=== PATIENT | male | born 1995 | race Caucasian/White ===

== ENCOUNTER 2018-09-19 22:12 | Emergency (ER) | payer BC, OTHER ==
[~2018-09-19] VITALS: Ht 167.6 cm; Wt 63.6 kg
[2018-09-19 22:19] VITALS: Ht 167.6 cm; Wt 63.6 kg
[2018-09-19] MEDS ORDERED: NALO4SPR NS (22:48)
[2018-09-19] MEDS ORDERED: NAR2I NS (22:48)
[2018-09-19 22:52] VITALS: BP 130/82; PULSE 88; RESP 15
--- NOTE | 2018-09-20 06:42 | ERD ---
ER Documentation Chief Complaint Chief Complaint bib ra89 for heroin overdose. given narcan intranasal by family at home HPI 23-year-old man brought in by EMS from home after heroin overdose. Mom found him laying supine in bed, cyanotic so she began chest compressions momentarily and also gave him intranasal naloxone which resulted in the patient waking up and breathing spontaneously. The patient had no vomiting or seizure activity after naloxone intervention he woke up and began running around the house and speaking coherently, episode occurred about half an hour prior to ER arrival, upon EMS arrival at home he was at his baseline mental status and was without complaints, he initially did not want to be transported to the ER by EMS and his mom convinced him to come here for evaluation. ROS All systems reviewed and are negative except as per history of present illness. Medications Home Meds Active Scripts Naloxone HCl nasal spray (Narcan 4 mg/0.1 mL nasal) 4 Mg [place], 4 MG NS .Q2-3MIN for OPIOID OVERDOSE, #2 SPRAY 0 Refills [place] 0.1 mL into one nostril. Repeat with second device into other nostril after 2-3 minutes if no or minimal response Prov:FATOUMATA HERNANDEZ MD 09/19/18 Naloxone Hcl 1mg/1mL 2mL syr (Narcan 1mg/1mL 2mL syr) 1 Mg/Ml Soln, 1 ML NS .Q2- 3 MIN PRN for OPIOID OVERDOSE, #2 SYR Dispense with mucosal atomizer devices. Using mucosal atomizer devices spray 1mL into each nostril. Repeat after 2-3 minutes if no or minimal response. Prov:FATOUMATA HERNANDEZ MD 09/19/18 Allergies Allergies: Coded Allergies: No Known Allergy (Unverified , 02/24/15) PMhx/Soc Heroin abuse History of Surgery: No Anesthesia Reaction: No Hx Neurological Disorder: No Hx Respiratory Disorders: Yes (ASTHMA) Hx Cardiac Disorders: No Hx Psychiatric Problems: No Hx Miscellaneous Medical Probl: No Hx Alcohol Use: Yes Hx Substance Use: Yes (HEROIN TODAY) Hx Tobacco Use: Yes Smoking Status: Current every day smoker Physical Exam Vitals Vital Signs Date Temp Pulse Resp B/P (MAP) Pulse Ox O2 O2 Flow FiO2 Time Delivery Rate 09/19/18 98.1 88 15 130/82 100 Room Air 22:52 (98) 09/19/18 98.1 102 16 126/85 97 22:19 (99) Physical Exam GENERAL: Well-developed, well-nourished, well-hydrated, in no apparent distress, looks nontoxic in appearance HEENT: Moist mucous membranes, pink conjunctiva, no cervical spine tenderness or step-off deformities, no goiter, no jaundice or icterus, extraocular movements intact without pain. No submandibular induration, and no pharyngeal erythema NEURO: Alert and oriented 3, cranial nerves II through XII intact bilaterally, pupils equal round reactive to light, no focal deficits or facial asymmetry, sensation intact distally Strength 5/5 in upper and lower extremities bilaterally CARDIAC: Regular rate and rhythm, no murmurs rubs or gallops LUNGS: Clear bilaterally no wheezing crackles or stridor ABDOMEN: Soft nontender, no guarding, no rigidity, no rebound, no psoas sign no obturator sign. Normoactive bowel sounds SKIN: Warm and dry to touch, no abrasions, contusions, or hematomas, no lacerations, no ecchymosis, no target lesions, and without ulcers EXTREMITIES: No clubbing cyanosis or edema, calves are bilaterally symmetrical, no Homans sign, no popliteal cord sign. Distal pulses equal and bilateral PSYCH: Normal affect without agitation or irritability Procedures/MDM Reassurance was provided to the patient and his mother who was at the bedside. Patient did not want to stay for any further intervention, imaging or reevaluation. He wanted to pull out his IV line and did not want to stay for further workup. His vital signs were normal, he had normal skin coloration and no signs of dyspnea. His mental status is within normal limits and he has no abnormal neurologic or cardiopulmonary findings. Differential diagnoses considered, included but not limited to acute coronary syndrome, pulmonary embolism, aortic dissection, abdominal aortic aneurysm, sepsis, stroke, meningitis, encephalitis, pneumonia, appendicitis, cholecystitis, bowel obstruction, pyelonephritis, nephrolithiasis, cystitis, as well as metabolic, hematologic, and electrolyte abnormalities. As well as abscess, cellulitis, fractures, and dislocations. Patient feels much better at this time, and vital signs are normal, symptoms have improved. I did give strict instructions to return to the ED if symptoms continue or worsen, patient will otherwise follow-up with primary care physician. Patient understood instructions and agreed to plan. Disclaimer: Inadvertent spelling and grammatical errors are likely due to EHR/dictation software use and do not reflect on the overall quality of patient care. Also, please note that the electronic time recorded on this note does not necessarily reflect the actual time of the patient encounter. Departure Diagnosis: Primary Impression: Opioid overdose Encounter type: initial encounter Injury intent: accidental or unintentional Qualified Codes: T40.2X1A - Poisoning by other opioids, accidental (unintentional), initial encounter Additional Impression: Drug abuse Condition: Good Patient Instructions: Opiate Abuse, Overdose, Opiate FATOUMATA HERNANDEZ MD Sep 20, 2018 06:42
== END 2018-09-19 23:07 | disposition home or self-care (01) ==
LOC: E/R 22:12
DX: T40.2X1A Poisoning by other opioids, accidental (unintentional), initial encounter (principal); F11.10 Opioid abuse, uncomplicated; J45.909 Unspecified asthma, uncomplicated; F17.210 Nicotine dependence, cigarettes, uncomplicated
CPT/HCPCS: 99283